=== PATIENT | male | born 1965 ===

== ENCOUNTER 2025-03-10 07:27 | Day surgery (SDC) | payer OTHER ==
[~2025-03-10 07:27] MED LIST: ALLOPURINOL300 MG PO; CLONAZEPAM2 M1 PO; EFFEXOR XR37.5 MG PO; FENOFIBRATE150 MG PO; SYNTHROID100 MCG PO; ZOLOFT100 MG PO
[2025-03-10] MEDS ORDERED: METRONIDAZOLE/SODIUM CHLORIDE 500 MG/100 ML PIGGYBACK IV ONE ×3 (09:51→13:15)
[2025-03-10] MEDS ORDERED: CEFTRIAXONE SODIUM 2,000 MG VIAL ONE (09:51)
[2025-03-10] MEDS ORDERED: HEMOSTATIC MATRIX 1 KIT KIT TOP ONE ×2 (11:49→13:15)
[2025-03-10] MEDS ORDERED: BUPIVACAINE LIPOSOME/PF 266 MG/20 ML VIAL IJ ONE (11:50)
[2025-03-10] MEDS ORDERED: DIBUCAINE 30 GM TUBE ONE (11:50)
[2025-03-10] MEDS ORDERED: POVIDONE-IODINE 118 ML BOTT TOP ONE (11:50)
[2025-03-10] MEDS ORDERED: DIBUCAINE 30 GM TUBE TOP ONE (13:15)
[2025-03-10] MEDS ORDERED: CEFTRIAXONE SODIUM 2,000 MG VIAL IV ONE (13:15)
[2025-03-12] MEDS ORDERED: HEMOSTATIC MATRIX 1 KIT KIT TOP ONE (14:00)
[2025-03-12] MEDS ORDERED: LIDOCAINE HCL 1%/EPINEPHRINE 20ML VIAL IJ ONE (14:00)
[2025-03-12] MEDS ORDERED: BUPIVACAINE HCL IN DEXTROSE/PF 2 ML AMPUL IJ ONE (14:00)
[2025-03-12] MEDS ORDERED: CEFTRIAXONE SODIUM 2,000 MG VIAL IV ONE (14:15)
[2025-03-12] MEDS ORDERED: METRONIDAZOLE/SODIUM CHLORIDE 500 MG/100 ML PIGGYBACK IV ONE (14:15)
[2025-03-12] MEDS ORDERED: DIBUCAINE 30 GM TUBE TOP ONE (14:15)
== END 2025-03-10 17:50 | disposition home or self-care (01) ==
LOC: CIR.AMB 07:27
PROVIDERS: ATTEND Colon & Rectal Surgery
DX: K60.321 Anal fistula, complex, initial (principal)